=== PATIENT | female | born 1990 | race Caucasian/White ===

== ENCOUNTER 2017-02-14 17:26 | Emergency (ER) | payer MEDICARE, OTHER ==
[~2017-02-14] VITALS: Ht 167.6 cm; Wt 62.6 kg
[2017-02-14 17:38] VITALS: TEMP 36.7; Ht 167.6 cm; Wt 62.6 kg
[2017-02-14 19:37] LABS: BASO % 0.2 %; BASO ABS # 0.03 K/uL (0-0.2); COMPLETE YES; EOS % 0.4 %; HEMATOCRIT 41.8 % (37-47); IG% 0.4 %; LYMPH % 18.5 %; MEAN CELL VOLUME 86.9 fL (80-100); MEAN CORPUSCULAR HEMOGLOBIN 31.4 pg (25-34); MEAN CORPUSCULAR HGB CONC 36.1 g/dl (32-36); MEAN PLATELET VOLUME 9.9 fL (7.4-10.4); MONO % 7.3 %; NEUT % 73.2 %; PLATELET COUNT 255 K/uL (130-400); RED BLOOD COUNT 4.81 M/uL (4.2-5.4); WHITE BLOOD COUNT 12.45 K/uL (4.8-10.8)
[2017-02-14 19:58] LABS: URINE APPEARANCE CLEAR (CLEAR); URINE BILIRUBIN NEG (NEG); URINE COLOR YELLOW; URINE NITRITE NEG (NEG); URINE SPECIFIC GRAVITY 1.009 (1.000-1.030); UROBILINOGEN NEG (NEG)
[2017-02-14 20:00] LABS: MANUAL MICROSCOPIC REQUIRED? NO; REVIEW REQ? NO
[2017-02-14 20:00] LABS: BUN/CREATININE RATIO 7.1 (10-20); CALCIUM 9.8 mg/dl (8.5-10.1); CREATININE 0.83 mg/dl (0.60-1.20); POTASSIUM 3.8 mmol/L (3.5-5.1)
[2017-02-14 20:10] VITALS: BP 94/59; PULSE 84; O2SAT 99
--- NOTE | 2017-02-14 20:31 | EMERGENCY ROOM VISIT NOTE ---
History First contact with patient: 18:26 Chief Complaint: ABDOMINAL PAIN Stated Complaint: ABD PAIN Nursing Triage Summary: patient c/o generalized abdominal pain and nausea since today. vomit x 2 this AM. History of Present Illness The patient is a 26 year old female who presents to the Emergency Room with her with complaints of lower abdominal pain with abrupt onset after having sex with her this morning. At approximately 9:30 AM, the patient and were having rather vigorous sex according to the patient. She was lying on her stomach with her performing rear vaginal entry. The patient reports that after having sex, she also had nausea with vomiting times one. A few hours later, she had another episode of vomiting. Since that time, she reports that the pain has not worsened. She reports that it feels like her stomach is tight. She has not noticed any vaginal drainage or bleeding. The patient denies or concerned for STI. She reports mild lower back pain as well. She denies any chest pain, shortness of breath or headache. She rates her discomfort an 8 out of 10 in triage, rating her discomfort a 4 out of 10 on my exam. Review of Systems HEENT: Denies dizziness, visual problems, hearing loss, tinnitus. Denies difficulty swallowing or oral lesions. PULMONARY: Denies cough, shortness of breath, sputum production or hemoptysis. CARDIOVASCULAR: Denies chest pain, palpitations, dyspnea on exertion, orthopnea or peripheral edema. GASTROINTESTINAL: Denies diarrhea, constipation, nausea, vomiting, or abdominal pain. GENITOURINARY: Denies dysuria, frequency, urgency or nocturia. NEUROLOGIC: Denies history of epilepsy, CVA, TIA or chronic headaches. MUSCULOSKELETAL: Denies history of joint tenderness/swelling. SKIN: Denies rashes or lesions. PSYCHIATRIC: Denies history of depression or mental illness. ENDOCRINE: Denies history of diabetes or thyroid disorders. Past Medical/Surgical History Medical Problems: (1) Hydronephrosis (2) Pap Smear Of Cervix W Low Gr Squamous Intraepith Les Lgsil (3) Tobacco Use Disorder Surgical Problems: (1) No history of previous surgery Family History FH: heart disease Social History Smoking Status: Current Every Day Smoker Alcohol Use: occasionally Marital Status: Occupation Status: employed Current/Historical Medications No Active Prescriptions or Reported Meds Physical Exam Vital Signs Date Time Temp Pulse Resp B/P (MAP) Pulse Ox O2 Delivery O2 Flow Rate FiO2 02/14/17 20:10 84 18 94/59 99 Room Air 02/14/17 17:38 36.7 99 18 112/75 99 Room Air Physical Exam CONSTITUTIONAL: Healthy and well nourished. Alert and oriented X 3 with positive affect. Patient does not appear in any acute distress. HEENT: Normocephalic, atraumatic. Pupils equal, round and reactive. NECK: Full active range of motion without discomfort. RESPIRATORY: Clear to auscultation bilaterally with no wheezing, crackles, rhonchi or stridor. CARDIOVASCULAR: Regular rate and rhythm with no murmurs, rubs or gallops. GASTROINTESTINAL: Bowel sounds present in all quadrants. The patient has mild central abdominal tenderness to palpation that is worsened when she tries to sit up from a supine position. Negative McBurney's point tenderness. Negative CVA tenderness. GENITOURINARY: With a female nurse stereotype finisher present, speculum and bimanual exam were performed. Examination shows a shavened pubic area with mild erythematous folliculitis. Normal external genitalia. Speculum exam does not cause any significant discomfort. There is no vaginal wall trauma, ecchymosis or evidence for hematoma. Cervix was visualized without any bleeding from the cervical os, ecchymosis, erythema or undue edema. Bimanual exam shows mild tenderness to palpation of the cervix with no cervical motion tenderness. Adnexa are also nontender to palpation without fullness or palpable masses. Ovaries could not be palpated. MUSCULOSKELETAL: Full range of motion of all joints without discomfort. Patient has mild tenderness to palpation through the lower lumbar paraspinous muscles. INTEGUMENTARY: No rash or other significant dermatologic conditions noted. NEUROLOGIC: No focal neurologic deficits noted. Medical Decision & Procedures Laboratory Results 02/14/17 19:25 Red Blood Count 4.81, Mean Corpuscular Volume 86.9, Mean Corpuscular Hemoglobin 31.4, Mean Corpuscular Hemoglobin Concent 36.1, Mean Platelet Volume 9.9, Neutrophils (%) (Auto) 73.2, Lymphocytes (%) (Auto) 18.5, Monocytes (%) (Auto) 7.3, Eosinophils (%) (Auto) 0.4, Basophils (%) (Auto) 0.2, Neutrophils # (Auto) 9.11, Lymphocytes # (Auto) 2.30, Monocytes # (Auto) 0.91, Eosinophils # (Auto) 0.05, Basophils # (Auto) 0.03 02/14/17 19:25 Test 02/14/17 19:25 02/14/17 19:45 White Blood Count 12.45 K/uL (4.8-10.8) Red Blood Count 4.81 M/uL (4.2-5.4) Hemoglobin 15.1 g/dL (12.0-16.0) Hematocrit 41.8 % (37-47) Mean Corpuscular Volume 86.9 fL (80-100) Mean Corpuscular Hemoglobin 31.4 pg (25-34) Mean Corpuscular Hemoglobin Concent 36.1 g/dl (32-36) Platelet Count 255 K/uL (130-400) Mean Platelet Volume 9.9 fL (7.4-10.4) Neutrophils (%) (Auto) 73.2 % Lymphocytes (%) (Auto) 18.5 % Monocytes (%) (Auto) 7.3 % Eosinophils (%) (Auto) 0.4 % Basophils (%) (Auto) 0.2 % Neutrophils # (Auto) 9.11 K/uL (1.4-6.5) Lymphocytes # (Auto) 2.30 K/uL (1.2-3.4) Monocytes # (Auto) 0.91 K/uL (0.11-0.59) Eosinophils # (Auto) 0.05 K/uL (0-0.5) Basophils # (Auto) 0.03 K/uL (0-0.2) RDW Standard Deviation 39.6 fL (36.4-46.3) RDW Coefficient of Variation 12.3 % (11.5-14.5) Immature Granulocyte % (Auto) 0.4 % Immature Granulocyte # (Auto) 0.05 K/uL (0.00-0.02) Anion Gap 6.0 mmol/L (3-11) Est Creatinine Clear Calc Drug Dose 95.3 ml/min Estimated GFR () 112.0 Estimated GFR (Non- 96.6 BUN/Creatinine Ratio 7.1 (10-20) Calcium Level 9.8 mg/dl (8.5-10.1) Total Bilirubin 0.5 mg/dl (0.2-1) Direct Bilirubin 0.1 mg/dl (0-0.2) Aspartate Amino Transf (AST/SGOT) 15 U/L (15-37) Alanine Aminotransferase (ALT/SGPT) 20 U/L (12-78) Alkaline Phosphatase 61 U/L (45-117) Total Protein 8.4 gm/dl (6.4-8.2) Albumin 4.7 gm/dl (3.4-5.0) Lipase 125 U/L (73-393) Urine Color YELLOW Urine Appearance CLEAR (CLEAR) Urine pH 8.0 (4.5-7.5) Urine Specific [place] 1.009 (1.000-1.030) Urine Protein NEG (NEG) Urine Glucose (UA) NEG (NEG) Urine Ketones NEG (NEG) Urine Occult Blood NEG (NEG) Urine Nitrite NEG (NEG) Urine Bilirubin NEG (NEG) Urine Urobilinogen NEG (NEG) Urine Leukocyte Esterase NEG (NEG) Urine Test NEG (NEG) The above labs were reviewed. Urinalysis is unremarkable. Urine is negative. Patient has a mild white count with left shift and bandemia. Electrolytes are otherwise normal. ED Course Patient history and physical exam were performed. Nurse's notes were reviewed. Vital signs were reviewed and were normal. The patient is afebrile and not tachycardic. Physical exam shows mild tenderness to palpation through the central abdominal wall and lower lumbar paraspinous muscles. Pelvic exam shows mild tenderness to palpation of the cervix without any other acute findings on exam. Review of labs shows a mild leukocytosis with left shift and bandemia. Urinalysis was unremarkable with a negative urine . Upon further questioning, the patient reports that she did have a flu shot this past week, and has also had mild sinus congestion and runny nose. The case was also discussed with Dr. Jensen who agrees with outpatient management, returning to the emergency department for any progressively worsening abdominal pain, persistent vomiting or developing fever. I did explain to the patient that this could be early appendicitis, but because the pain was abrupt onset, I suspect this is likely due to muscular strain and dyspareunia. Patient was encouraged to take ibuprofen and Tylenol as needed for pain. Pelvic rest until symptoms improve. The patient was happy with plan of care, voiced understanding of all discharge instructions, and rated her discomfort a 3 out of 10 at the conclusion of my exam. Medical Decision See previous section. At this point, I do not feel that further CT imaging is warranted given the abrupt onset of symptoms. Medication Reconcilliation Current Medication List: was personally reviewed by me Blood Pressure Screening Patient's blood pressure: Normal blood pressure Impression Primary Impression: Abdominal wall pain Additional Impressions: Acute lumbar myofascial strain Dyspareunia Departure Information Prescriptions No Active Prescriptions or Reported Meds Referrals No Doctor, Assigned (PCP) Patient Instructions My [facility] Problem Qualifiers Additional Impressions: Acute lumbar myofascial strain Encounter type: initial encounter Qualified Codes: S39.012A - Strain of muscle, fascia and tendon of lower back, initial encounter
== END 2017-02-14 20:37 | disposition home or self-care (01) ==
LOC: C.EDB 17:26
DX: R10.9 Unspecified abdominal pain (principal); S39.012A Strain of muscle, fascia and tendon of lower back, initial encounter; N94.10 Unspecified dyspareunia; X58.XXXA Exposure to other specified factors, initial encounter; Z82.49 Family history of ischemic heart disease and other diseases of the circulatory system; F17.200 Nicotine dependence, unspecified, uncomplicated

== ENCOUNTER 2020-03-24 20:36 | Inpatient (IN) ==
[2020-03-24] MEDS ORDERED: OXYTOCIN 30 UNITS/500 ML BAG IV PRN ×2 (21:03→21:07)
--- NOTE | 2020-03-24 21:07 | Progress Note ---
Date of Service March 24, 2020 Subjective pt admited for PROM at 1900HRS Gross ROM on arrival FHR; CAT1 Ctx Minial VE-/post Bedside sono; VT Results & Data ([facility]) Vital Signs (Past 12 Hours) Vital Signs Pulse BP 03/24/20 20:50 97 H 137/82
[2020-03-24 21:33] LABS: Hematocrit (blood only) 31.6 % (37-47); Mean Corpuscular Hemoglobin 31.6 pg (25-34); Mean Corpuscular Hgb Conc 34.8 g/dL (32-36); Mean Corpuscular Volume 90.8 fL (80-100); Mean Platelet Volume 10.4 fL (7.4-10.4); Platelet Count 266 K/uL (130-400); RDW Coefficient of Variation 13.2 % (11.5-14.5); RDW Standard Deviation 43.7 fL (36.4-46.3); Red Blood Count 3.48 M/uL (4.2-5.4); White Blood Count 13.34 K/uL (4.8-10.8)
[2020-03-24] MEDS: LACTATED RINGER'S 1,000 ML IV PRN (23:04)
--- NOTE | 2020-03-25 04:56 | Progress Note ---
Date of Service March 25, 2020 Assessment & Plan Admission and Anticipated Discharge Date Admission Date: March 24, 2020 Subjective Pt doing well FHR; CAT1 Ctx ; 1-3 VE; 3-4/50/post On Pitocin SROM at 19;00 hRs on 03/24/20 Results & Data ([facility]) Vital Signs (Past 12 Hours) Vital Signs Temp Pulse Resp BP 03/25/20 04:47 64 127/73 03/25/20 03:35 37.1 C 70 108/59 L 03/25/20 02:03 65 120/73 03/25/20 00:57 36.8 C 03/24/20 23:06 37.1 C 77 121/79 03/24/20 21:05 36.9 C 18 03/24/20 20:50 36.9 C 97 H 18 137/82
[2020-03-25] MEDS: NICOTINE 7 MG/24 HR TDSY TD SCH (06:35)
[2020-03-25] MEDS ORDERED: NICOTINE 21 MG/24 HR TDSY TD SCH (07:00)
[2020-03-25] MEDS ORDERED: NICOTINE 7 MG/24 HR TDSY TD SCH (07:00)
[2020-03-25] MEDS: LACTATED RINGER'S 1,000 ML IV PRN ×2 (07:03→09:47)
[2020-03-25] MEDS ORDERED: SODIUM CHLORIDE 0.9% INJ 10 ML VIAL ONE (08:48)
[2020-03-25] MEDS ORDERED: ePHEDrine sulfate 50 MG/ML AMP ONE (08:48)
[2020-03-25] MEDS ORDERED: BUPIVACAINE 0.25% 30 ML VIAL ONE (08:49)
[2020-03-25] MEDS ORDERED: fentaNYL citrate 100 MCG/2 ML VIAL ONE (08:49)
[2020-03-25] MEDS ORDERED: fentaNYL 2MCG/ML ROPIVACAINE 1.25MG/ML 100 ML BAG EPI ONE (08:50)
--- NOTE | 2020-03-25 09:43 | Anesthesiology Consultation ---
Date of Service March 25, 2020 Assessment & Plan Chart Review Chart Review: Acceptable Risk for Labor Epidural Consults Requested none History Height/Weight Height: 5 ft 6 in Weight: 74.389 kg Allergies Allergy/AdvReac Type Severity Reaction Status Date / Time nickel Allergy Rash Verified 03/24/20 21:39 Medications Home Medications Medication Instructions Recorded Confirmed Last Taken calcium carbonate [Tums 500] 500 mg PO DAILY 03/24/20 03/24/20 03/24/20 famotidine [Pepcid] 40 mg PO DAILY 03/24/20 03/24/20 03/24/20 vit [id number] 1 tab PO DAILY 03/24/20 03/24/20 03/24/20 [ Vitamin] Active Medications Generic Name Dose Route Start Last Admin Trade Name Freq PRN Reason Stop Dose Admin Lactated Ringer's 1,000 mls @ 125 mls/hr 03/24/20 21:03 03/25/20 07:03 Lr IV 03/26/20 21:02 125 mls/hr .Q8H PRN Administration L&D Protocol Protocol Oxytocin 30 units in 500 mls @ 12 mls/hr 03/24/20 21:07 03/25/20 06:24 Pitocin IV 03/26/20 21:06 0.72 units/hr .Q24H PRN 12 mls/hr Labor Induction/Augmentation Titration Protocol 0.72 UNITS/HR Nicotine 7 mg 03/25/20 07:00 03/25/20 06:35 Nicotine 7 Mg/24 Hr Tdsy TD 04/24/20 06:59 7 mg QAM NATACHA Administration Past Medical History Medical History No significant past medical history Social History Smoking Status: Current every day smoker tobacco type: cigarettes Smoking cigarettes per day: 20 Hx Alcohol Use: No Hx Substance Use: No Physical Exam Vital Signs Last Vital Signs Temp 37.1 C 03/25/20 07:17 Pulse 61 03/25/20 09:40 Resp 20 03/25/20 07:17 BP 121/69 03/25/20 09:40 Pulse Ox 100 03/25/20 09:37 Testing Laboratory Results 03/24/20 21:25
[2020-03-25] MEDS ORDERED: ePHEDrine sulfate 50 MG/ML AMP IV PRN (09:44)
[2020-03-25] MEDS ORDERED: NALOXONE HCL 1 MG in SODIUM CHLORIDE 0.9% 1000ML 1,000 ML IV PRN (09:44)
[2020-03-25] MEDS ORDERED: fentaNYL 2MCG/ML ROPIVACAINE 1.25MG/ML 100 ML BAG EPI PRN (09:44)
[2020-03-25] MEDS ORDERED: diphenhydrAMINE 50 MG/ML VIAL IV PRN (09:44)
[2020-03-25] MEDS ORDERED: NALOXONE HCL 0.4 MG/1 ML VIAL/CARP IV PRN (09:44)
[2020-03-25] MEDS ORDERED: ACETAMINOPHEN 325 MG TAB PO PRN (12:41)
[2020-03-25] MEDS ORDERED: OXYTOCIN 30 UNITS/500 ML BAG IV PRN (12:41)
[2020-03-25] MEDS ORDERED: ACETAMINOPHEN W/CODEINE #3 1 TAB PO PRN (12:41)
[2020-03-25] MEDS ORDERED: oxyCODONE/ACETAMINOPHEN 5mg/325mg TAB PO PRN (12:41)
[2020-03-25] MEDS ORDERED: BENZOCAINE 20% AER SPR 82.5 GM CAN EXT PRN (12:41)
[2020-03-25] MEDS ORDERED: DIPHTHERIA/TETANUS/PERTUSSIS 0.5 ML SYR/VIAL IM ONE (12:41)
[2020-03-25] MEDS ORDERED: bisacodyL 10 MG SUPP PR PRN (12:41)
[2020-03-25] MEDS ORDERED: IBUPROFEN 600 MG TAB PO PRN (12:41)
[2020-03-25] MEDS ORDERED: SUPERCREAM 0.870% 15 GM JAR EXT PRN (12:41)
[2020-03-25] MEDS ORDERED: HYDROCORTISONE ACETATE 25 MG SUPP PR PRN (12:41)
--- NOTE | 2020-03-25 15:29 | Anesthesia Procedure Note ---
Date of Service March 25, 2020 Anesthesia Post Epidural Note Vital Signs Vital Signs: Temp Pulse Resp BP Pulse Ox 37.1 C 70 20 112/65 100 03/25/20 14:49 03/25/20 14:49 03/25/20 14:49 03/25/20 14:49 03/25/20 12:32 Pain Intensity Bilateral Abdomen: Pain Intensity: 0 Notes Mental Status: alert / awake / arousable Nausea / Vomiting: adequately controlled Pain: adequately controlled Airway Patency, RR, SpO2: stable & adequate BP & HR: stable & adequate Hydration State: stable & adequate Neuraxial Anesthesia: was administered and sensory block is resolving Anesthetic Complications: no major complications apparent and Pt Satisfied with anesthetic care Epidural: Removed without complications and With tip intact
[2020-03-25] MEDS ORDERED: ONDANSETRON INJ 2 MG/ML 2 ML VIAL IV PRN (16:40)
--- NOTE | 2020-03-25 19:26 | Delivery Summary ---
DATE OF OPERATION: 03/25/2020 The patient is a 1, para 1, blood type O negative, group B strep negative, was admitted with ruptured membranes at 38 weeks and 1 day, was started on IV Pitocin. Eventually, she had an epidural for pain relief. She went to full dilatation, delivered a live male infant via direct occiput anterior position over an intact perineum. There was a loose nuchal cord, which was reduced over the head prior to delivering the shoulders. Shoulders were delivered without difficulty. Cord was allowed to pulse for a minute, then it was clamped, cut by the father. Cord blood was taken. With IV Pitocin running, the placenta was removed intact. Inspection of the perineum revealed a superficial laceration of the vagina and left labia minora at about 2 o'clock and this was repaired with a running 2-0 Vicryl. Following this, hemostasis was good. Vaginal exam revealed no hematoma formation. There were no sponges in the vagina. Estimated blood loss was 100 mL. I attest to the content of the Intraoperative Record and any orders documented therein. Any exception s are noted below.
[2020-03-25] MEDS: DOCUSATE SODIUM 100 MG CAP PO SCH (20:54)
[2020-03-26 06:06] LABS: Hematocrit (blood only) 28.1 % (37-47); Hemoglobin 9.6 g/dL (12.0-16.0); Mean Corpuscular Hemoglobin 31.1 pg (25-34); Mean Corpuscular Hgb Conc 34.2 g/dL (32-36); Mean Corpuscular Volume 90.9 fL (80-100); Mean Platelet Volume 10.3 fL (7.4-10.4); Platelet Count 250 K/uL (130-400); RDW Coefficient of Variation 13.3 % (11.5-14.5); RDW Standard Deviation 43.6 fL (36.4-46.3); Red Blood Count 3.09 M/uL (4.2-5.4); White Blood Count 12.25 K/uL (4.8-10.8)
[2020-03-26] MEDS ORDERED: PRENATAL VITAMIN 1 TAB PO SCH (08:00)
--- NOTE | 2020-03-26 08:25 | Obstetrical Progress Note ---
Date of Service March 26, 2020 Assessment & Plan Admission and Anticipated Discharge Date Admission Date: March 24, 2020 Physical Exam Physical Exam: abdomen soft and non tender no calf tenderness ambulating well vaginal bleeding scant hgb 9.6 patient requests discharge Results & Data ([facility]) Vital Signs (Past 12 Hours) Vital Signs Temp Pulse Resp BP Pulse Ox 03/26/20 04:20 37.5 C 68 18 106/66 03/25/20 23:55 36.8 C 67 18 113/67 98
[2020-03-26] MEDS: NICOTINE 7 MG/24 HR TDSY TD SCH (08:54)
[2020-03-26] MEDS: DOCUSATE SODIUM 100 MG CAP PO SCH (08:54)
[2020-03-26] MEDS ORDERED: MEASLES, MUMPS & RUBELLA VIRUS VIAL SQ ONE (16:06)
[2020-03-26] MEDS ORDERED: bisacodyL 5 MG TABEC PO SCH (20:00)
== END 2020-03-26 18:14 | disposition home or self-care (01) | DRG 807 ==
LOC: OPB 20:36 → 4S1 20:38 → 4S2 03-25 15:33

== ENCOUNTER 2020-11-01 12:25 | Observation (INO) ==
[2020-11-01] MEDS: LIDOCAINE 1% LOCAL 20 ML VIAL INFIL ONE ×2 (13:13→17:02)
[2020-11-01 13:19] LABS: Basophils # (auto) 0.04 K/uL (0-0.2); Basophils % (auto) 0.2 %; Eosinophils # (auto) 0.07 K/uL (0-0.5); Eosinophils % (auto) 0.4 %; Hematocrit (blood only) 40.2 % (37-47); Immature Granulocytes # (auto) 0.05 K/uL (0.00-0.02); Immature Granulocytes % (auto) 0.3 %; Lymphocytes # (auto) 1.89 K/uL (1.2-3.4); Lymphocytes % (auto) 11.4 %; Mean Corpuscular Hgb Conc 34.8 g/dL (32-36); Mean Corpuscular Volume 86.1 fL (80-100); Mean Platelet Volume 9.4 fL (7.4-10.4); Monocytes # (auto) 1.57 K/uL (0.11-0.59); Monocytes % (auto) 9.4 %; Neutrophils # (auto) 13.02 K/uL (1.4-6.5); Neutrophils % (auto) 78.3 %; Platelet Count 295 K/uL (130-400); RDW Coefficient of Variation 13.6 % (11.5-14.5); RDW Standard Deviation 42.7 fL (36.4-46.3); Red Blood Count 4.67 M/uL (4.2-5.4); White Blood Count 16.64 K/uL (4.8-10.8)
[2020-11-01 13:40] LABS: BUN Creatinine Ratio 11.9 (10-20); Calcium 9.4 mg/dl (8.5-10.1); Creatinine Clr Calc Pharmacy 97.8 ml/min; Est GFR (African American) 117.4 ml/min; Est GFR (Non-African American) 101.3 ml/min; Potassium 4.1 mmol/L (3.5-5.1)
[2020-11-01 13:43] LABS: Albumin Globulin Ratio 0.9 (0.9-2); Bilirubin,Total 0.5 mg/dl (0.2-1); Globulin 4.3 gm/dl (2.5-4.0); Total Protein 8.3 gm/dl (6.4-8.2)
[2020-11-01] MEDS ORDERED: OPTIRAY 320 100ml IV ONE (13:53)
--- NOTE | 2020-11-01 14:27 | CT Scan Report ---
CT pelvis w/IV con only CLINICAL HISTORY: Reaccumulated pilonidal x3, post surgery COMPARISON STUDY: September 15, 20152020 TECHNIQUE: A dose lowering technique was utilized adhering to the principles of ALARA. CT DOSE: 350.82 mGycm FINDINGS: There is 2.6 x 5.5 cm area of fluid signal within subcutaneous tissue overlying sacrum whi ch was measured 3.0 x 5.1 cm on prior study when measured in similar fashion. This lesion is measurin g 9.8 cm in craniocaudal dimension which is slightly larger since prior however previously seen inter nal hyperattenuating component is not visualized. Redemonstration of small amount of gas collection i s seen within this lesion. Interval development of small amount of fluid within pelvis is not connected to the subcutaneous lesi on likely representing physiologic free fluid within pelvis. Uterus is again seen and unchanged since prior study. Cystic appearance of bilateral adnexa is visual ized. Interval development of 3.3 x 2.2 cm hypoattenuating structure within left adnexa might represe nt physiologic follicle. Urinary bladder is decompressed which limits evaluation. Visualized loops of bowel are nondilated. Partially visualized vascular and osseous structures are unremarkable. No evidence of osseous lesions are seen. IMPRESSION: 1. Redemonstration of hypoattenuating collection in subcutaneous aspect of the posterior pelvic wall with few areas of gas which might represent postoperative changes or gas collection within the absce ss. No osseous erosions seen. 2. Small amount of fluid adjacent to the right of rectal wall likely representing physiologic free f luid in premenopausal female. ACT 112: Negative or not required by law. Electronically signed by: Valorie Seaman DO 11/01/2020 2:25 PM
[2020-11-01] MEDS ORDERED: HYDROmorphone INJ 0.5 MG/0.5 ML SYR IV STA (14:48)
[2020-11-01] MEDS ORDERED: ONDANSETRON INJ 2 MG/ML 2 ML VIAL IV STA (14:48)
[2020-11-01] MEDS ORDERED: PIPERACILL/TAZOBAC CONSULT ACTIVE PRN ×2 (15:19→20:30)
[2020-11-01] MEDS ORDERED: PIPERACILLIN/TAZOBACTAM 4.5 GM/120 ML BAG IV ONE (15:19)
[2020-11-01] MEDS ORDERED: SODIUM CHLORIDE 0.9% 1000ML 2,000 ML IV ONE (15:26)
--- NOTE | 2020-11-01 16:09 | Surgery Consultation ---
Date of Consultation November 01, 2020 Assessment & Plan (1) Abscess of sacrum: pt is a 30 year-old female who presents to ER with one day history sacral pain, pt is S/P resection pilonidal cyst 2 months ago, IMP: sacral abscess Plan, I recommend to do I/D sacral abscess, D/W benefits, risks and alternatives of the surgery, the risks - infection, bleeding, sepsis, recurrence, pt understood, she agrees with surgery, pt will admit to hospital after surgery, pt agrees with the plan, I answered all questions, pre-op antibiotic, COVID-19, Present on Admission?: Yes History of Present Illness History of Present Illness CC: sacral pain HPI: pt is a 30 year-old female who presents to ER with one day history sacral pain, the pain started yesterday, pt feels more pain, the pain is 6-8/10, now pt comes to ER, pt denies fever,no abdominal pain, no diarrhea, no drainage from sacral area, pt is S/P resection pilonidal cyst 2 months ago, pt had CT scan at ER diagnosis- sacral abscess. Allergies Allergy/AdvReac Type Severity Reaction Status Date / Time nickel Allergy Rash Verified 11/01/20 14:36 Home Medications Medication Instructions Recorded Confirmed Type No Known Home Medications 11/01/20 11/01/20 History Patient History Medical History No significant past medical history Social History Smoking Status: Current every day smoker Tobacco Type: Cigarettes Cigarettes Per Day: 20; Second Hand Exposure: Yes; Hx Alcohol Use: No Hx Substance Use: No Preferred Language: Hebrew Communication Ability: Effective Lifestyle Coordinator Required: No Beliefs That Will Affect Care: None marital status: Current Living Situation: Spouse Feels Safe at Home: Yes Assistive Devices: None Review of Systems Review of Systems: All systems reviewed & are unremarkable except as noted in HPI & below Constitutional: as per Subjective / HPI Eyes: as per Subjective / HPI Ear, Nose, Mouth, Throat: as per Subjective / HPI Respiratory: as per Subjective / HPI Cardiovascular: as per Subjective / HPI Gastrointestinal: as per Subjective / HPI S/P resection pilonidal cyst Genitourinary: as per Subjective / HPI kidney stone Musculoskeletal: as per Subjective / HPI left elbow pain Integumentary: as per Subjective / HPI Neurologic: as per Subjective / HPI Psychiatric: as per Subjective / HPI Endocrine: as per Subjective / HPI Hematologic / Lymphatic: as per Subjective / HPI Physical Exam Constitutional: WD/WN, vitals as above well developed and well nourished Eyes: PERRL, conjunctivae normal, anicteric sclerae ENMT: external ear and nose normal, oropharynx normal Neck: trachea midline, no thyromegaly Respiratory: normal respiratory effort, lungs clear to auscultation normal respiratory effort Cardiovascular: RRR, no murmur, no edema Rate/Rhythm: regular rate and regular rhythm Gastrointestinal (Abdomen): normal bowel sounds, soft, nontender, no hepatosplenomegaly redness and tenderness at sacral area, size about 3x4cm, no drainage Musculoskeletal: no cyanosis or clubbing, extremities motor strength 5/5 Skin: redness and tenderness at sacral area, size about 3x4cm, no drainage Neurologic: awake Psychiatric: Orientation: alert and oriented x 3 Results & Data ([facility]) Vital Signs (Past 12 Hours) Vital Signs Temp Pulse Pulse Resp BP BP Pulse Ox 11/01/20 14:25 74 18 93/59 L 97 11/01/20 12:33 36.3 C L 132 H 20 121/77 100 Laboratory Results Abnormal lab results 11/01/20 11/01/20 Range/Units 13:08 13:08 WBC 16.64 H (4.8-10.8) K/uL Neut # (Auto) 13.02 H (1.4-6.5) K/uL [place] # (Auto) 1.57 H (0.11-0.59) K/uL Immature Gran # (Auto) 0.05 H (0.00-0.02) K/uL Sodium 135 L (136-145) mmol/L AST 8 L (15-37) U/L Total Protein 8.3 H (6.4-8.2) gm/dl Globulin 4.3 H (2.5-4.0) gm/dl Diagnostic Findings CT pelvis w/IV con only CLINICAL HISTORY: Reaccumulated pilonidal x3, post surgery COMPARISON STUDY: September 15, 20152020 TECHNIQUE: A dose lowering technique was utilized adhering to the principles of ALARA. CT DOSE: 350.82 mGycm FINDINGS: There is 2.6 x 5.5 cm area of fluid signal within subcutaneous tissue overlying sacrum which was measured 3.0 x 5.1 cm on prior study when measured in similar fashion. This lesion is measuring 9.8 cm in craniocaudal dimension which is slightly larger since prior however previously seen internal hyperattenuating component is not visualized. Redemonstration of small amount of gas collection is seen within this lesion. Interval development of small amount of fluid within pelvis is not connected to the subcutaneous lesion likely representing physiologic free fluid within pelvis. Uterus is again seen and unchanged since prior study. Cystic appearance of bilateral adnexa is visualized. Interval development of 3.3 x 2.2 cm hypoattenuating structure within left adnexa might represent physiologic follicle. Urinary bladder is decompressed which limits evaluation. Visualized loops of bowel are nondilated. Partially visualized vascular and osseous structures are unremarkable. No evidence of osseous lesions are seen. IMPRESSION: 1. Redemonstration of hypoattenuating collection in subcutaneous aspect of the posterior pelvic wall with few areas of gas which might represent postoperative changes or gas collection within the abscess. No osseous erosions seen. 2. Small amount of fluid adjacent to the right of rectal wall likely representing physiologic free fluid in premenopausal female.
--- NOTE | 2020-11-01 16:15 | History & Physical Bridge Note ---
Date of Service November 01, 2020 History & Physical Bridge Note I have examined the patient, reviewed the History & Physical and in the interval since the performance of the History & Physical I have noted the following changes of clinical significance: no changes noted
[2020-11-01] MEDS ORDERED: BACITRACIN OINT 15 GM TUBE ONE (16:26)
[2020-11-01] MEDS ORDERED: BUPIVACAINE 0.5 % 5 MG/1 ML MPF 30ML VIAL ONE (16:26)
[2020-11-01] MEDS ORDERED: LIDOCAINE 1% LOCAL 20 ML VIAL ONE (16:26)
[2020-11-01] MEDS ORDERED: HYDROmorphone INJ 1 MG/ML SYRINGE IV PRN ×2 (16:28→20:30)
[2020-11-01] MEDS ORDERED: LABETALOL HCL IV 5 MG/ML 20ML IV PRN (16:28)
[2020-11-01] MEDS ORDERED: ONDANSETRON INJ 2 MG/ML 2 ML VIAL IV PRN ×2 (16:28→18:16)
[2020-11-01] MEDS ORDERED: MEPERIDINE HCL 25 MG/ML CARP/VIAL IV PRN (16:28)
[2020-11-01] MEDS ORDERED: ATROPINE SULFATE 0.1 MG/ML 10ML SYR IV PRN (16:28)
[2020-11-01] MEDS ORDERED: fentaNYL citrate 100 MCG/2 ML VIAL IV PRN (16:28)
[2020-11-01] MEDS ORDERED: PHENYLEPHRINE 100MCG/ML 5ML SYR IV PRN (16:28)
[2020-11-01] MEDS ORDERED: ePHEDrine sulfate 50 MG/ML AMP IV PRN (16:28)
[2020-11-01] MEDS ORDERED: LIDOCAINE 2% 2 ML VIAL/AMP(20MG/ML) INFIL ONE (17:05)
[2020-11-01] MEDS ORDERED: DEXAMETHASONE SOD INJ 4 MG/ML VIAL ONE (17:05)
[2020-11-01] MEDS ORDERED: ONDANSETRON INJ 2 MG/ML 2 ML VIAL ONE (17:05)
[2020-11-01] MEDS ORDERED: PROPOFOL IV EMULSION 10 MG/ML 20 ML VIAL IV ONE (17:05)
[2020-11-01] MEDS ORDERED: fentaNYL citrate 100 MCG/2 ML VIAL ONE (17:06)
[2020-11-01] MEDS ORDERED: MIDAZOLAM HCL 1 MG/ML 2ML VIAL ONE (17:06)
--- NOTE | 2020-11-01 17:33 | Anesthesiology Consultation ---
Date of Service November 01, 2020 Assessment & Plan (1) Encounter for pre-operative examination: Chart Review Chart Review: Acceptable Risk for Surgery and Patient NOT seen in Pre Admission Testing Consults Requested none History Surgery Operation Date: 11/01/20 09:55 Proposed Procedures p Drainage of Lower Back Abscess - Bob Waggoner MD Height/Weight Height: 5 ft 6 in Weight: 68.3 kg Allergies Allergy/AdvReac Type Severity Reaction Status Date / Time nickel Allergy Rash Verified 11/01/20 14:36 Medications Home Medications Medication Instructions Recorded Confirmed Last Taken No Known Home Medications 11/01/20 11/01/20 Unknown NPO Date Last Intake of Fluids: 11/01/20 Time Last Intake of Fluids: 07:00 Last Intake of Fluids Comment: sip of water at 1200 Date Last Intake of Solids: 10/31/20 Time Last Intake of Solids: 18:30 Past Medical History Medical History Smoker Social History Smoking Status: Current every day smoker tobacco type: cigarettes Smoking cigarettes per day: 20 Hx Alcohol Use: No Hx Substance Use: No Physical Exam Vital Signs Last Vital Signs Temp 37.6 C H 11/01/20 17:21 Pulse 130 H 11/01/20 17:21 Resp 18 11/01/20 17:21 BP 118/79 11/01/20 17:21 Pulse Ox 98 11/01/20 17:21 Testing Laboratory Results 11/01/20 13:08 11/01/20 13:08 11/01/20 16:37 POC Ur Test NEG
[2020-11-01] MEDS ORDERED: SUCCINYLCHOLINE CHLORIDE 20 MG/ML 10 ML VIAL IV ONE (17:45)
[2020-11-01] MEDS ORDERED: ESMOLOL HCL INJ 10 MG/ML 10ML VIAL IV ONE (17:45)
--- NOTE | 2020-11-01 18:13 | Post Operative Brief Note ---
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
[2020-11-01] MEDS ORDERED: ACETAMINOPHEN 325 MG TAB PO SCH ×2 (18:30→21:00)
--- NOTE | 2020-11-01 18:51 | Anesthesiology Progress Note ---
Date of Service November 01, 2020 Anesthesia Post Procedure Vital Signs Vital Signs: Temp Pulse Pulse Resp BP BP Pulse Ox 11/01/20 18:40 94 H 13 93/59 L 100 11/01/20 18:30 103 H 8 L 96/63 L 100 11/01/20 18:23 36.2 C L 114 H 16 94/55 L 98 11/01/20 17:21 37.6 C H 130 H 18 118/79 98 11/01/20 16:00 80 18 100/61 96 11/01/20 14:25 74 18 93/59 L 97 11/01/20 12:33 36.3 C L 132 H 20 121/77 100 Transfer of Care Handoff Completed per policy Notes Mental Status: alert / awake / arousable Patient Amnestic to Procedure: Yes Nausea / Vomiting: adequately controlled Pain: adequately controlled Airway Patency, RR, SpO2: stable & adequate BP & HR: stable & adequate Hydration State: stable & adequate Anesthetic Complications: no major complications apparent and Pt Satisfied with anesthetic care
--- NOTE | 2020-11-01 19:12 | Operative Report (OR) ---
DATE OF SURGERY: 11/01/2020. PREOPERATIVE DIAGNOSIS: Low back abscess. POSTOPERATIVE DIAGNOSIS: Low back abscess. OPERATION: Incision and drainage of low back abscess. SURGEON: Bob Waggoner MD. ANESTHESIA: General. ESTIMATED BLOOD LOSS: About 10 mL. FINDINGS: Low back soft tissue abscess. Wound cultures sent, packing the wound. SPECIMENS: None. INDICATION OF THE PROCEDURE: This is a 30-year-old female who presented to the ED with low back pain. The patient had a CT scan diagnosis of lower back soft tissue abscess and the patient had a resection of the pilonidal cyst about 2 months ago and I recommend to do incision and drainage or lower back soft tissue abscess. I did talk to the patient about the benefit, risks, alternate procedure, indicated the risks may include, but not limited to, such as bleeding, infection, sepsis, recurrence. The patient understands and she signed informed consent and I answered all questions. DETAILS OF PROCEDURE: After we identified the patient and verified the procedure, we brought in the patient to the OR and put the patient on supine position. The patient received SCD on bilateral legs to prevent DVT. Also, the patient received 3.375 grams of Zosyn IV for prophylactic antibiotics. The patient received general anesthesia without difficulty. Then, the right positioned to the prone position on the OR table. The low back area was prepped and draped in routine sterile fashion after timeout, then I made about a 3 cm incision on the lower back. There was some pus come out immediately, a suction gauze applied to clean the pus and clean the chronic tissue. We sent the wound culture and then we used normal saline to wash out the wound. Hemostasis obtained. Then, we used a half-inch Kerlix to packing the incision. No active bleeding and also injections of local anesthesia using 1% lidocaine mixed with 0.5% Marcaine around the incision. Once we finished the procedure, we put the dressing on. The patient tolerated the procedure well. All instrument, needle and sponge counts were correct x2 at the end of the case. The patient was transferred to recovery room in stable condition. After the procedure, I did talk to the patient about the OR findings and procedure we did, she understands. Job ID: [id number] [facility]
[2020-11-01] MEDS ORDERED: LACTATED RINGER'S 1,000 ML IV SCH (20:30)
[2020-11-01] MEDS ORDERED: ACETAMINOPHEN 325 MG TAB PO PRN (20:40)
--- NOTE | 2020-11-01 20:53 | Emergency Department Note ---
History of Present Illness General Chief complaint: Pilonidal Cyst Stated complaint: CYST Time Seen by Provider: 11/01/20 12:48 Source: patient, family (Father) and RN notes reviewed Mode of arrival: ambulatory Limitations: no limitations History of Present Illness Provider complaint: Pilonidal cyst Maximum Pain Intensity: 8 This patient is a 30-year-old female who presents to the emergency department with complaints of a painful lower back cyst. Patient states she has a history of a pilonidal cyst that was drained in the emergency department and had follow- up with general surgery were taken to the operating room. Dr. Waggoner performed surgery several months ago but over the last several days the area became warm and reddened. Patient states it hurts to even touch the area let alone sit. He denies any fevers or drainage. She did contact the surgeon's office who referred her to the emergency department today. Home Medications Medication Instructions Recorded Confirmed Type No Known Home Medications 11/01/20 11/01/20 History oxycodone-acetaminophen [Percocet] 1 tab PO Q6H PRN #30 tab 11/03/20 Rx sulfamethoxazole-trimethoprim 1 tab PO BID 10 Days #20 tab 11/03/20 Rx [Bactrim DS] Allergies Allergy/AdvReac Type Severity Reaction Status Date / Time nickel Allergy Rash Verified 11/01/20 14:36 Past Med/Surg History Medical History Kidney stones Left elbow pain Pilonidal cyst Smoker Social History Smoking Status: Current every day smoker Tobacco Type: Cigarettes Cigarettes Per Day: 8; Second Hand Exposure: Yes; Hx Alcohol Use: No Hx Substance Use: No Preferred Language: Maori Communication Ability: Effective Nursing Support Worker Required: No Beliefs That Will Affect Care: None marital status: Current Living Situation: Spouse Feels Safe at Home: Yes Assistive Devices: None Review of Systems See HPI for pertinent positives & negatives. and A total of 10 systems reviewed and were otherwise negative Physical Exam Vital Signs Vital Signs - 24 hr 11/01/20 12:33 11/01/20 14:25 11/01/20 16:00 Temperature 36.3 C L Temperature Source Skin Pulse Rate 132 H Pulse Rate [Apical] 74 80 Pulse Rhythm [Apical] Pulse Strength [Apical] Respiratory Rate 20 18 18 Respiratory Effort / Characteristics Non-Labored Spontaneous Respiratory Depth Normal Blood Pressure 121/77 Blood Pressure [Left Arm] 93/59 L 100/61 Blood Pressure Mean 91 Blood Pressure Mean [Left Arm] 70 74 Blood Pressure Position Sitting Blood Pressure Position [Left Arm] Pulse Oximetry 100 97 96 Oxygen Delivery Method Room Air Room Air Room Air Sepsis Recent Fever Within 48 Hours No Sepsis New/Unexplained Change in Mental Status N/A Sepsis Action Taken by Nursing No Action Required 11/01/20 17:21 Temperature 37.6 C H Temperature Source Oral Pulse Rate Pulse Rate [Apical] 130 H Pulse Rhythm [Apical] Regular Pulse Strength [Apical] Normal Respiratory Rate 18 Respiratory Effort / Characteristics Non-Labored Respiratory Depth Normal Blood Pressure Blood Pressure [Left Arm] 118/79 Blood Pressure Mean Blood Pressure Mean [Left Arm] 92 Blood Pressure Position Blood Pressure Position [Left Arm] Semi-fowlers Pulse Oximetry 98 Oxygen Delivery Method Sepsis Recent Fever Within 48 Hours Sepsis New/Unexplained Change in Mental Status Sepsis Action Taken by Nursing Vital signs reviewed. General: Well-appearing 30 yo female, in no significant distress. HEENT: No scleral icterus, PERRLA, neck supple. Atraumatic. Cardiovascular: Regular rate and rhythm, no extra sounds. Pulmonary: Clear to auscultation bilaterally, normal work of breathing. Abdomen: Soft, nontender, nondistended, positive bowel sounds. Musculoskeletal: Atraumatic, no peripheral edema. Gluteal cleft with postsurgical change at the most proximal aspect, erythema, induration and minimal fluctuance. Positive tenderness. No drainage. Neurologic: Patient awake alert and oriented x 3 Skin: Warm, dry, see above. Course Administered Medications Discontinued Medications Acetaminophen (Acetaminophen 325 Mg Tab) 650 mg PO Q6H [facility] Stop: 12/01/20 18:29 Last Admin: 11/01/20 20:42 Dose: Not Given Documented by: [id number] Acetaminophen (Acetaminophen 325 Mg Tab) 650 mg PO Q6H PRN PRN Reason: for fever T > 38 Stop: 12/01/20 20:39 Last Admin: 11/02/20 20:19 Dose: 650 mg Documented by: [id number] Bacitracin (Bacitracin Oint 15 Gm Tube) Confirm Administered Dose 45 appln .ROUTE .[facility]-MED ONE Stop: 11/01/20 16:27 Last Admin: 11/01/20 18:05 Dose: 45 appln Documented by: [id number] Bupivacaine HCl (Bupivacaine 0.5 % 5 Mg/1 Ml Mpf 30ml Vial) Confirm Administered Dose 30 ml .ROUTE .[facility]-MED ONE Stop: 11/01/20 16:27 Last Admin: 11/01/20 18:05 Dose: 20 ml Documented by: [id number] Hydromorphone HCl (Hydromorphone Inj 0.5 Mg/0.5 Ml Syr) 0.5 mg IV NOW STA Stop: 11/01/20 14:49 Last Admin: 11/01/20 15:04 Dose: 0.5 mg Documented by: [id number] Hydromorphone HCl (Hydromorphone Inj 1 Mg/Ml Syringe) 1 mg IV Q3H PRN PRN Reason: Pain Stop: 11/15/20 20:29 Last Admin: 11/02/20 22:45 Dose: 1 mg Documented by: [id number] Piperacillin Sod/Tazobactam Sod (Zosyn) 4.5 gm in 120 mls @ 240 mls/hr IV NOW ONE Stop: 11/01/20 15:48 Last Infusion: 11/01/20 16:17 Dose: 0 mls/hr Documented by: [id number] Admin: 11/01/20 15:46 Dose: 240 mls/hr Documented by: [id number] Sodium Chloride (Nss 1000ml) 2,000 mls @ 999 mls/hr IV .Q2H1M ONE Stop: 11/01/20 17:26 Last Infusion: 11/01/20 20:42 Dose: 0 mls/hr Documented by: [id number] Admin: 11/01/20 15:46 Dose: 999 mls/hr Documented by: [id number] Lactated Ringer's (Lr) 1,000 mls @ 80 mls/hr IV .[id number] NATACHA Stop: 12/01/20 20:29 Last Infusion: 11/02/20 02:52 Dose: 0 mls/hr Documented by: [id number] Infusion: 11/01/20 23:41 Dose: 100 mls/hr Documented by: [id number] Admin: 11/01/20 21:17 Dose: 80 mls/hr Documented by: [id number] Piperacillin Sod/Tazobactam (Sod 3.375 gm/ Dextrose) 115 mls @ 28.75 mls/hr IV Q8H NATACHA; Protocol Stop: 11/08/20 20:59 Last Infusion: 11/02/20 08:45 Dose: 0 mls/hr Documented by: [id number] Infusion: 11/02/20 08:45 Dose: 0 mls/hr Documented by: [id number] Admin: 11/02/20 05:11 Dose: 28.8 mls/hr Documented by: [id number] Infusion: 11/02/20 01:31 Dose: 0 mls/hr Documented by: [id number] Admin: 11/01/20 21:20 Dose: 28.8 mls/hr Documented by: [id number] Lactated Ringer's (Lr) 1,000 mls @ 100 mls/hr IV .Q10H NATACHA Stop: 12/02/20 02:49 Last Admin: 11/03/20 10:53 Dose: 100 mls/hr Documented by: [id number] Infusion: 11/03/20 10:46 Dose: 100 mls/hr Documented by: [id number] Infusion: 11/03/20 06:38 Dose: 100 mls/hr Documented by: [id number] Admin: 11/03/20 00:46 Dose: 100 mls/hr Documented by: [id number] Infusion: 11/02/20 15:14 Dose: 100 mls/hr Documented by: [id number] Admin: 11/02/20 05:11 Dose: 100 mls/hr Documented by: [id number] Infusion: 11/02/20 05:11 Dose: 100 mls/hr Documented by: [id number] Admin: 11/02/20 03:03 Dose: 100 mls/hr Documented by: [id number] Ampicillin Sodium/Sulbactam Sodium 3,000 mg/ Sodium Chloride 108 mls @ 216 mls/hr IV Q6H NATACHA Stop: 11/09/20 10:59 Last Infusion: 11/03/20 11:30 Dose: 0 mls/hr Documented by: [id number] Admin: 11/03/20 10:56 Dose: 216 mls/hr Documented by: [id number] Infusion: 11/03/20 06:15 Dose: 0 mls/hr Documented by: [id number] Admin: 11/03/20 05:41 Dose: 216 mls/hr Documented by: [id number] Infusion: 11/02/20 23:15 Dose: 0 mls/hr Documented by: [id number] Admin: 11/02/20 22:40 Dose: 216 mls/hr Documented by: [id number] Infusion: 11/02/20 18:15 Dose: 0 mls/hr Documented by: [id number] Admin: 11/02/20 17:24 Dose: 216 mls/hr Documented by: [id number] Infusion: 11/02/20 13:02 Dose: 0 mls/hr Documented by: [id number] Admin: 11/02/20 11:35 Dose: 216 mls/hr Documented by: [id number] Ioversol (Optiray 320 100ml) 93 ml IV ONCE ONE Stop: 11/01/20 13:54 Last Admin: 11/01/20 13:53 Dose: 93 ml Documented by: [id number] Lidocaine HCl (Lidocaine Hcl 1% 20 Ml Vial) 10 ml INFIL NOW ONE Stop: 11/01/20 12:56 Last Admin: 11/01/20 17:02 Dose: Not Given Documented by: [id number] Lidocaine HCl (Lidocaine Hcl 1% 20 Ml Vial) Confirm Administered Dose 20 ml .ROUTE .STK-MED ONE Stop: 11/01/20 16:27 Last Admin: 11/01/20 18:05 Dose: 20 ml Documented by: [id number] Ondansetron HCl (Ondansetron Inj 2 Mg/Ml 2 Ml Vial) 4 mg IV NOW STA Stop: 11/01/20 14:49 Last Admin: 11/01/20 15:04 Dose: 4 mg Documented by: [id number] Oxycodone/Acetaminophen (Oxycodone/Acetaminophen 5mg/325mg Tab) 1 tab PO Q4H PRN PRN Reason: Pain Stop: 11/15/20 20:29 Last Admin: 11/03/20 08:40 Dose: 1 tab Documented by: [id number] Admin: 11/02/20 17:28 Dose: 1 tab Documented by: [id number] Admin: 11/02/20 07:36 Dose: 1 tab Documented by: [id number] Admin: 11/02/20 00:44 Dose: 1 tab Documented by: [id number] Medical Decision Making Differential Diagnosis Cellulitis, pilonidal cyst, abscess, trauma, fistula, postsurgical infection. Medical Records Attestation: I reviewed the patient's medical records. Home Medications Current Medication List: was personally reviewed by me Laboratory Data Attestation: I reviewed the patient's lab results. Result diagrams: 11/03/20 11:39 11/02/20 08:48 Lab Results 11/01/20 11/01/20 11/01/20 Range/Units 13:08 13:08 15:50 WBC 16.64 H (4.8-10.8) K/uL RBC 4.67 (4.2-5.4) M/uL Hgb 14.0 (12.0-16.0) g/dL Hct 40.2 (37-47) % MCV 86.1 (80-100) fL MCH 30.0 (25-34) pg MCHC 34.8 (32-36) g/dL RDW Std Deviation 42.7 (36.4-46.3) fL RDW Coeff of Doroteo 13.6 (11.5-14.5) % Plt Count 295 (130-400) K/uL MPV 9.4 (7.4-10.4) fL Immature Gran % (Auto) 0.3 % Neut % (Auto) 78.3 % Lymph % (Auto) 11.4 % [place] % (Auto) 9.4 % Eos % (Auto) 0.4 % Baso % (Auto) 0.2 % Neut # (Auto) 13.02 H (1.4-6.5) K/uL Lymph # (Auto) 1.89 (1.2-3.4) K/uL [place] # (Auto) 1.57 H (0.11-0.59) K/uL Eos # (Auto) 0.07 (0-0.5) K/uL Baso # (Auto) 0.04 (0-0.2) K/uL Immature Gran # (Auto) 0.05 H (0.00-0.02) K/uL Sodium 135 L (136-145) mmol/L Potassium 4.1 (3.5-5.1) mmol/L Chloride 106 (98-107) mmol/L Carbon Dioxide 23 (21-32) mmol/L Anion Gap 6.0 (3-11) BUN 9 (7-18) mg/dl Creatinine 0.78 (0.6-1.2) mg/dl Est Cr Clr Drug Dosing 97.8 ml/min Est GFR ( Amer) 117.4 ml/min Est GFR (Non-Af Amer) 101.3 ml/min BUN/Creatinine Ratio 11.9 (10-20) Glucose 91 (70-99) mg/dl Calcium 9.4 (8.5-10.1) mg/dl Total Bilirubin 0.5 (0.2-1) mg/dl AST 8 L (15-37) U/L ALT 19 (12-78) U/L Alkaline Phosphatase 70 (45-117) U/L Total Protein 8.3 H (6.4-8.2) gm/dl Albumin 4.0 (3.4-5.0) gm/dl Globulin 4.3 H (2.5-4.0) gm/dl Albumin/Globulin Ratio 0.9 (0.9-2) POC Ur Test (NEG) COVID-19 Eval Order Covid19 at [facility] SARS-CoV-2 (PCR) (Negative) 11/01/20 11/01/20 Range/Units 15:50 16:37 WBC (4.8-10.8) K/uL RBC (4.2-5.4) M/uL Hgb (12.0-16.0) g/dL Hct (37-47) % MCV (80-100) fL MCH (25-34) pg MCHC (32-36) g/dL RDW Std Deviation (36.4-46.3) fL RDW Coeff of Doroteo (11.5-14.5) % Plt Count (130-400) K/uL MPV (7.4-10.4) fL Immature Gran % (Auto) % Neut % (Auto) % Lymph % (Auto) % [place] % (Auto) % Eos % (Auto) % Baso % (Auto) % Neut # (Auto) (1.4-6.5) K/uL Lymph # (Auto) (1.2-3.4) K/uL [place] # (Auto) (0.11-0.59) K/uL Eos # (Auto) (0-0.5) K/uL Baso # (Auto) (0-0.2) K/uL Immature Gran # (Auto) (0.00-0.02) K/uL Sodium (136-145) mmol/L Potassium (3.5-5.1) mmol/L Chloride (98-107) mmol/L Carbon Dioxide (21-32) mmol/L Anion Gap (3-11) BUN (7-18) mg/dl Creatinine (0.6-1.2) mg/dl Est Cr Clr Drug Dosing ml/min Est GFR ( Amer) ml/min Est GFR (Non-Af Amer) ml/min BUN/Creatinine Ratio (10-20) Glucose (70-99) mg/dl Calcium (8.5-10.1) mg/dl Total Bilirubin (0.2-1) mg/dl AST (15-37) U/L ALT (12-78) U/L Alkaline Phosphatase (45-117) U/L Total Protein (6.4-8.2) gm/dl Albumin (3.4-5.0) gm/dl Globulin (2.5-4.0) gm/dl Albumin/Globulin Ratio (0.9-2) POC Ur Test NEG (NEG) COVID-19 Eval Order SARS-CoV-2 (PCR) NEGATIVE (Negative) Imaging Data Radiologist's Impression: Pelvis CT 11/01/20 12:55 CT pelvis w/IV con only CLINICAL HISTORY: Reaccumulated pilonidal x3, post surgery COMPARISON STUDY: September 15, 20152020 TECHNIQUE: A dose lowering technique was utilized adhering to the principles of ALARA. CT DOSE: 350.82 mGycm FINDINGS: There is 2.6 x 5.5 cm area of fluid signal within subcutaneous tissue overlying sacrum which was measured 3.0 x 5.1 cm on prior study when measured in similar fashion. This lesion is measuring 9.8 cm in craniocaudal dimension which is slightly larger since prior however previously seen internal hyperattenuating component is not visualized. Redemonstration of small amount of gas collection is seen within this lesion. Interval development of small amount of fluid within pelvis is not connected to the subcutaneous lesion likely representing physiologic free fluid within pelvis. Uterus is again seen and unchanged since prior study. Cystic appearance of bilateral adnexa is visualized. Interval development of 3.3 x 2.2 cm hypoattenuating structure within left adnexa might represent physiologic fo llicle. Urinary bladder is decompressed which limits evaluation. Visualized loops of bowel are nondilated. Partially visualized vascular and osseous structures are unremarkable. No evidence of osseous lesions are seen. IMPRESSION: 1. Redemonstration of hypoattenuating collection in subcutaneous aspect of the posterior pelvic wall with few areas of gas which might represent postoperative changes or gas collection within the abscess. No osseous erosions seen. 2. Small amount of fluid adjacent to the right of rectal wall likely representing physiologic free fluid in premenopausal female. ACT 112: Negative or not required by law. Electronically signed by: Valorie Seaman DO 11/01/2020 2:25 PM Blood Pressure Blood Pressure Findings: Normal blood pressure Blood Pressure Disposition: did not require urgent referral MDM Narrative This patient was evaluated and appeared to be in no significant distress. IV access was obtained and laboratory work was drawn. Patient's laboratory work reveals an elevated WBC, CT scan of the pelvis was performed and reveals redemonstration of hypoattenuating collection in the subcutaneous aspect of the posterior pelvic wall, concerning for recollection of fluid. Patient did receive IV Zosyn, IV Dilaudid and Zofran. Dr. Waggoner of general surgery was consulted who evaluated the patient emergency department. He is opted to take the patient to the operating room for definitive management. Patient was aware of the plan and agreed. Impression & Plan Pilonidal abscess, History of surgical removal of pilonidal cyst Discharge Plan Visit Data Chief Complaint: Pilonidal Cyst Stated Complaint: CYST ED Provider: Alyce Hess Discharge Problem: Pilonidal abscess, History of surgical removal of pilonidal cyst Patient Disposition: Admitted As Inpatient Condition: Good Discharge Instructions Interventions: ED Discharge Assessment Last Done: 11/01/20 17:20
[2020-11-01 20:56] LABS: Basophils # (auto) 0.03 K/uL (0-0.2); Basophils % (auto) 0.2 %; Eosinophils # (auto) 0.01 K/uL (0-0.5); Eosinophils % (auto) 0.1 %; Hematocrit (blood only) 36.9 % (37-47); Hemoglobin 12.6 g/dL (12.0-16.0); Immature Granulocytes # (auto) 0.04 K/uL (0.00-0.02); Immature Granulocytes % (auto) 0.2 %; Lymphocytes # (auto) 1.16 K/uL (1.2-3.4); Lymphocytes % (auto) 6.3 %; Mean Corpuscular Hemoglobin 30.2 pg (25-34); Mean Corpuscular Hgb Conc 34.1 g/dL (32-36); Mean Corpuscular Volume 88.5 fL (80-100); Mean Platelet Volume 9.5 fL (7.4-10.4); Monocytes # (auto) 0.74 K/uL (0.11-0.59); Neutrophils # (auto) 16.58 K/uL (1.4-6.5); Neutrophils % (auto) 89.2 %; Platelet Count 280 K/uL (130-400); RDW Coefficient of Variation 13.5 % (11.5-14.5); RDW Standard Deviation 43.9 fL (36.4-46.3); Red Blood Count 4.17 M/uL (4.2-5.4); White Blood Count 18.56 K/uL (4.8-10.8)
[2020-11-01] MEDS: PIPERACILLIN/TAZOBACTAM 3.375 GM in DEXTROSE 5% 100 ML IV SCH (21:20)
--- NOTE | 2020-11-02 00:20 | Communication Note ---
Date of Service: November 02, 2020 Received call from floor nurse stating patient was noted be hypotensive. The nurse notes that the patient's systolic blood pressures in the 90s and the pat ient is asymptomatic without lightheadedness or dizziness. She notes the pain patient does not appear to be bleeding from her surgical site. I instructed nurse to bolus 250 cc of lactated Ringer's and increase IV fluid rate to 100 cc/h. As patient is asymptomatic will monitor clinically in addition to the intravenous fluid orders noted above. Instructed nurse to call back if patient becomes symptomatic.
[2020-11-02] MEDS: oxyCODONE/ACETAMINOPHEN 5mg/325mg TAB PO PRN ×3 (00:44→17:28)
[2020-11-02] MEDS: LACTATED RINGER'S 1,000 ML IV SCH ×2 (03:03→05:11)
[2020-11-02] MEDS: PIPERACILLIN/TAZOBACTAM 3.375 GM in DEXTROSE 5% 100 ML IV SCH (05:11)
--- NOTE | 2020-11-02 08:41 | Anesthesiology Progress Note ---
Date of Service November 02, 2020 Anesthesia Post Procedure Vital Signs Vital Signs: Temp Pulse Pulse Pulse Resp BP BP 11/02/20 07:32 36.9 C 59 L 16 104/64 11/02/20 03:45 36.5 C 68 16 89/55 L 11/02/20 00:03 36.6 C 70 16 93/55 L 11/01/20 22:17 36.7 C 82 19 91/52 L 11/01/20 21:30 89/52 L 11/01/20 21:17 36.8 C 77 17 83/45 L 11/01/20 20:47 36.6 C 85 17 97/62 L 11/01/20 20:17 37.0 C 81 18 94/57 L 11/01/20 20:00 37.0 C 92 H 13 104/63 11/01/20 19:50 37.0 C 83 16 101/60 11/01/20 19:40 37.0 C 96 H 19 94/70 L 11/01/20 19:30 37.0 C 89 14 85/43 L 11/01/20 19:20 37.0 C 82 20 96/55 L 11/01/20 19:10 37.0 C 92 H 16 94/51 L 11/01/20 19:00 37.0 C 87 11 L 92/54 L 11/01/20 18:50 37.0 C 94 H 10 L 93/56 L 11/01/20 18:40 94 H 13 93/59 L 11/01/20 18:30 103 H 8 L 96/63 L 11/01/20 18:23 36.2 C L 114 H 16 94/55 L 11/01/20 17:21 37.6 C H 130 H 18 118/79 11/01/20 16:00 80 18 100/61 11/01/20 14:25 74 18 93/59 L 11/01/20 12:33 36.3 C L 132 H 20 121/77 Pulse Ox 11/02/20 07:32 96 11/02/20 03:45 98 11/02/20 00:03 97 11/01/20 22:17 96 11/01/20 21:30 11/01/20 21:17 96 11/01/20 20:47 95 11/01/20 20:17 95 11/01/20 20:00 93 11/01/20 19:50 93 11/01/20 19:40 94 11/01/20 19:30 93 11/01/20 19:20 95 11/01/20 19:10 96 11/01/20 19:00 96 11/01/20 18:50 97 11/01/20 18:40 100 11/01/20 18:30 100 11/01/20 18:23 98 11/01/20 17:21 98 11/01/20 16:00 96 11/01/20 14:25 97 11/01/20 12:33 100 Pain Intensity Sacrum: Pain Intensity: 0 Notes Mental Status: alert / awake / arousable and participated in evaluation Patient Amnestic to Procedure: Yes Nausea / Vomiting: adequately controlled Pain: adequately controlled Airway Patency, RR, SpO2: stable & adequate BP & HR: stable & adequate Hydration State: stable & adequate Anesthetic Complications: no major complications apparent
[2020-11-02 09:18] LABS: Basophils # (auto) 0.02 K/uL (0-0.2); Basophils % (auto) 0.1 %; Eosinophils # (auto) 0.02 K/uL (0-0.5); Eosinophils % (auto) 0.1 %; Hematocrit (blood only) 34.8 % (37-47); Hemoglobin 11.8 g/dL (12.0-16.0); Immature Granulocytes # (auto) 0.05 K/uL (0.00-0.02); Immature Granulocytes % (auto) 0.3 %; Lymphocytes # (auto) 2.09 K/uL (1.2-3.4); Lymphocytes % (auto) 12.9 %; Mean Corpuscular Hemoglobin 29.4 pg (25-34); Mean Corpuscular Hgb Conc 33.9 g/dL (32-36); Mean Corpuscular Volume 86.6 fL (80-100); Mean Platelet Volume 9.5 fL (7.4-10.4); Monocytes # (auto) 1.28 K/uL (0.11-0.59); Monocytes % (auto) 7.9 %; Neutrophils # (auto) 12.76 K/uL (1.4-6.5); Neutrophils % (auto) 78.7 %; Platelet Count 278 K/uL (130-400); RDW Coefficient of Variation 13.6 % (11.5-14.5); RDW Standard Deviation 43.8 fL (36.4-46.3); Red Blood Count 4.02 M/uL (4.2-5.4); White Blood Count 16.22 K/uL (4.8-10.8)
[2020-11-02 09:57] LABS: Albumin Globulin Ratio 0.8 (0.9-2); Albumin Level 3.1 gm/dl (3.4-5.0); BUN Creatinine Ratio 11.5 (10-20); Bilirubin,Total 0.3 mg/dl (0.2-1); Calcium 8.9 mg/dl (8.5-10.1); Creatinine Clr Calc Pharmacy 112.2 ml/min; Est GFR (African American) 135.1 ml/min; Est GFR (Non-African American) 116.6 ml/min; Globulin 3.8 gm/dl (2.5-4.0); Potassium 3.8 mmol/L (3.5-5.1); Total Protein 6.9 gm/dl (6.4-8.2)
[2020-11-02] MEDS: AMPICILLIN/SULBACTAM SOD 3,000 MG in 0.9 % SODIUM CHLORIDE 100 ML IV SCH ×3 (11:35→22:40)
--- NOTE | 2020-11-02 12:23 | Surgery Progress Note ---
Date of Service F/U S/P I/D lower back abscess, POD 1, pt feels better, no fever, WBC 18,000 November 02, 2020 Assessment & Plan (1) Abscess of sacrum: pt is a 30 year-old female who presents to ER with one day history sacral pain, pt is S/P resection pilonidal cyst 2 months ago, IMP: sacral abscess Plan, I recommend to do I/D sacral abscess, D/W benefits, risks and alternatives of the surgery, the risks - infection, bleeding, sepsis, recurrence, pt understood, she agrees with surgery, pt will admit to hospital after surgery, pt agrees with the plan, I answered all questions, pre-op antibiotic, COVID-19, 11/02/2020 12:25PM F/U S/P I/D lower back abscess, POD 1 doing better, base on WBC 18,000, I recommend continue IV antibiotic, change unasyn will F/U, possible D/C home tomorrow, pt agrees with the plan, I answered all questions, Admission and Anticipated Discharge Date Admission Date: November 01, 2020 Review of Systems Constitutional: as per Subjective / HPI Eyes: as per Subjective / HPI Ear, Nose, Mouth, Throat: as per Subjective / HPI Respiratory: as per Subjective / HPI Cardiovascular: as per Subjective / HPI Gastrointestinal: as per Subjective / HPI S/P resection pilonidal cyst Genitourinary: as per Subjective / HPI kidney stone Musculoskeletal: as per Subjective / HPI left elbow pain Integumentary: as per Subjective / HPI Neurologic: as per Subjective / HPI Psychiatric: as per Subjective / HPI Endocrine: as per Subjective / HPI Hematologic / Lymphatic: as per Subjective / HPI Physical Exam Constitutional: WD/WN, vitals as above well developed and well nourished Eyes: PERRL, conjunctivae normal, anicteric sclerae ENMT: external ear and nose normal, oropharynx normal Neck: trachea midline, no thyromegaly Respiratory: normal respiratory effort, lungs clear to auscultation normal respiratory effort Cardiovascular: RRR, no murmur, no edema Rate/Rhythm: regular rate and regular rhythm Gastrointestinal (Abdomen): normal bowel sounds, soft, nontender, no hepatosplenomegaly the incision site dry, less redness, Musculoskeletal: no cyanosis or clubbing, extremities motor strength 5/5 Neurologic: awake Psychiatric: Orientation: alert and oriented x 3 Results & Data ([facility]) Vital Signs (Past 12 Hours) Vital Signs Temp Pulse Pulse Resp BP Pulse Ox 11/02/20 07:32 36.9 C 59 L 16 104/64 96 11/02/20 03:45 36.5 C 68 16 89/55 L 98 Laboratory Results Abnormal lab results 11/01/20 11/01/20 11/01/20 Range/Units 13:08 13:08 20:41 WBC 16.64 H 18.56 H (4.8-10.8) K/uL RBC 4.17 L (4.2-5.4) M/uL Hgb (12.0-16.0) g/dL Hct 36.9 L (37-47) % Neut # (Auto) 13.02 H 16.58 H (1.4-6.5) K/uL Lymph # (Auto) 1.16 L (1.2-3.4) K/uL [place] # (Auto) 1.57 H 0.74 H (0.11-0.59) K/uL Immature Gran # (Auto) 0.05 H 0.04 H (0.00-0.02) K/uL Sodium 135 L (136-145) mmol/L Chloride (98-107) mmol/L Glucose (70-99) mg/dl AST 8 L (15-37) U/L Total Protein 8.3 H (6.4-8.2) gm/dl Albumin (3.4-5.0) gm/dl Globulin 4.3 H (2.5-4.0) gm/dl Albumin/Globulin Ratio (0.9-2) 11/02/20 11/02/20 Range/Units 08:48 08:48 WBC 16.22 H (4.8-10.8) K/uL RBC 4.02 L (4.2-5.4) M/uL Hgb 11.8 L (12.0-16.0) g/dL Hct 34.8 L (37-47) % Neut # (Auto) 12.76 H (1.4-6.5) K/uL Lymph # (Auto) (1.2-3.4) K/uL [place] # (Auto) 1.28 H (0.11-0.59) K/uL Immature Gran # (Auto) 0.05 H (0.00-0.02) K/uL Sodium (136-145) mmol/L Chloride 114 H (98-107) mmol/L Glucose 102 H (70-99) mg/dl AST (15-37) U/L Total Protein (6.4-8.2) gm/dl Albumin 3.1 L (3.4-5.0) gm/dl Globulin (2.5-4.0) gm/dl Albumin/Globulin Ratio 0.8 L (0.9-2)
[2020-11-03] MEDS: LACTATED RINGER'S 1,000 ML IV SCH ×2 (00:46→10:53)
[2020-11-03] MEDS: AMPICILLIN/SULBACTAM SOD 3,000 MG in 0.9 % SODIUM CHLORIDE 100 ML IV SCH ×2 (05:41→10:56)
[2020-11-03] MEDS: oxyCODONE/ACETAMINOPHEN 5mg/325mg TAB PO PRN (08:40)
[2020-11-03 11:50] LABS: Basophils # (auto) 0.04 K/uL (0-0.2); Basophils % (auto) 0.4 %; Eosinophils # (auto) 0.17 K/uL (0-0.5); Eosinophils % (auto) 1.8 %; Hematocrit (blood only) 33.1 % (37-47); Hemoglobin 11.3 g/dL (12.0-16.0); Immature Granulocytes # (auto) 0.02 K/uL (0.00-0.02); Immature Granulocytes % (auto) 0.2 %; Lymphocytes # (auto) 3.65 K/uL (1.2-3.4); Lymphocytes % (auto) 38.3 %; Mean Corpuscular Hemoglobin 29.7 pg (25-34); Mean Corpuscular Volume 87.1 fL (80-100); Monocytes # (auto) 0.81 K/uL (0.11-0.59); Monocytes % (auto) 8.5 %; Neutrophils # (auto) 4.83 K/uL (1.4-6.5); Neutrophils % (auto) 50.8 %; Platelet Count 256 K/uL (130-400); RDW Coefficient of Variation 13.7 % (11.5-14.5); RDW Standard Deviation 43.9 fL (36.4-46.3); White Blood Count 9.52 K/uL (4.8-10.8)
[2020-11-03 11:58] LABS: Mean Corpuscular Hgb Conc 34.1 g/dL (32-36)
--- NOTE | 2020-11-03 12:32 | Surgery Progress Note ---
Date of Service doing better, no significant incision pain, the wound is dry, no drainage, no fever, WBC 9.5, wound culture Many WBCs Seen Many Gram Negative Bacilli Many Gram Positive Cocci November 03, 2020 Assessment & Plan (1) Abscess of sacrum: pt is a 30 year-old female who presents to ER with one day history sacral pain, pt is S/P resection pilonidal cyst 2 months ago, IMP: sacral abscess Plan, I recommend to do I/D sacral abscess, D/W benefits, risks and alternatives of the surgery, the risks - infection, bleeding, sepsis, recurrence, pt understood, she agrees with surgery, pt will admit to hospital after surgery, pt agrees with the plan, I answered all questions, pre-op antibiotic, COVID-19, 11/02/2020 12:25PM F/U S/P I/D lower back abscess, POD 1 doing better, base on WBC 18,000, I recommend continue IV antibiotic, change unasyn will F/U, possible D/C home tomorrow, pt agrees with the plan, I answered all questions, 11/03/2020 12:35PM F/U S/P I/D lower back abscess, POD 2 doing better, base on WBC 9.5 discharge home today, post op care instruction given, pt will F/U [facility] wound care center on Friday for packing change, bactrim 800/160 one pill po bid x 10 days, F/U me one week, Admission and Anticipated Discharge Date Admission Date: November 01, 2020 Review of Systems Constitutional: as per Subjective / HPI Eyes: as per Subjective / HPI Ear, Nose, Mouth, Throat: as per Subjective / HPI Respiratory: as per Subjective / HPI Cardiovascular: as per Subjective / HPI Gastrointestinal: as per Subjective / HPI S/P resection pilonidal cyst Genitourinary: as per Subjective / HPI kidney stone Musculoskeletal: as per Subjective / HPI left elbow pain Integumentary: as per Subjective / HPI Neurologic: as per Subjective / HPI Psychiatric: as per Subjective / HPI Endocrine: as per Subjective / HPI Hematologic / Lymphatic: as per Subjective / HPI Physical Exam Constitutional: WD/WN, vitals as above well developed and well nourished Eyes: PERRL, conjunctivae normal, anicteric sclerae ENMT: external ear and nose normal, oropharynx normal Neck: trachea midline, no thyromegaly Respiratory: normal respiratory effort, lungs clear to auscultation normal respiratory effort Cardiovascular: RRR, no murmur, no edema Rate/Rhythm: regular rate and regular rhythm Gastrointestinal (Abdomen): normal bowel sounds, soft, nontender, no hepatosplenomegaly I change packing, the wound is dry, no redness, Musculoskeletal: no cyanosis or clubbing, extremities motor strength 5/5 Neurologic: awake Psychiatric: Orientation: alert and oriented x 3 Results & Data ([facility]) Vital Signs (Past 12 Hours) Vital Signs Temp Pulse Resp BP Pulse Ox 11/03/20 07:34 36.7 C 64 16 128/79 99 Laboratory Results Abnormal lab results 11/03/20 Range/Units 11:39 RBC 3.80 L (4.2-5.4) M/uL Hgb 11.3 L (12.0-16.0) g/dL Hct 33.1 L (37-47) % Lymph # (Auto) 3.65 H (1.2-3.4) K/uL [place] # (Auto) 0.81 H (0.11-0.59) K/uL
--- NOTE | 2020-11-03 13:14 | Discharge Summary (DS) ---
DATE OF ADMISSION: 11/01/2020 DATE OF DISCHARGE: 11/03/2020 ADMISSION DIAGNOSIS: Lower back abscess. DISCHARGE DIAGNOSIS: Lower back abscess. OPERATION: Incision and drainage of lower back abscess. SURGEON: Bob Waggoner MD. DETAILS OF DISCHARGE SUMMARY: This is a 30-year-old female who presented to the ED with lower back ab scess by CT scan confirmed diagnosis and we took the patient to the OR, we did an incision and draina ge of lower back abscess. We sent a wound culture and drained the abscess and packed the wound. The patient tolerated the procedure well. After the procedure, the patient was transferred to [facility]. The patient is doing fine. No fever and white count has come down to 9.5. PHYSICAL EXAMINATION: VITAL SIGNS: Temperature is 36.7, respiratory rate is 16, heart rate 64, blood pressure 128/79, O2 s aturation 99% on room air. GENERAL: The patient is alert, awake, oriented x3. HEENT: Within normal limitation. NEUROLOGIC: Intact. NECK: No JVD. CHEST: Bilateral lung sounds are clear. HEART: Normal S1 and S2. No murmur. ABDOMEN: Soft. BACK: No tenderness on the wound. The wound is dry. No redness. Today, I repacked the wound. The patient tolerated the procedure well. EXTREMITIES: No edema. So, the patient wanted to go home today. We discharged the patient home today. I gave the patient p ostop care instruction and the patient will follow up with [facility] for packing change next Friday. I will follow up the patient in 1 or 2 weeks. The patient unde rsgonzalo. I answered all questions. Job ID: [id number]
== END 2020-11-03 14:35 | disposition home or self-care (01) ==
LOC: ED 12:25 → 3W 12:25